=== PATIENT | male | born 1935 | race Caucasian/White ===

== ENCOUNTER → 2016-07-15 | Outpatient (CLI) | payer BC, OTHER ==
[~2016-07-15] MED LIST: ALBU1AER9 INH; ASPCH81X PO; ATEN25TA PO; BENA20TA PO; CARB25TA12 PO; FISHOIL PO; FLUO20CA35 PO; GABA-113 PO; NITR0.4S UT; OMEP40CA PO; OXCA150T3 PO; OXCA300T4 PO; PRIM50TA29 PO; SIMV40TA2 PO; TAMS0.4C59 PO; TEMA15CA4 PO
== END | disposition home or self-care (01) ==
LOC: C.LABMFLN 09:19
PROVIDERS: ATTEND Urology
DX: R33.9 Retention of urine, unspecified (principal); N39.41 Urge incontinence

== ENCOUNTER 2017-04-21 11:53 | Emergency (ER) | payer OTHER ==
[~2017-04-21] VITALS: Ht 175.3 cm; Wt 78.3 kg
[2017-04-21 12:02] VITALS: Ht 175.3 cm; Wt 78.3 kg
[2017-04-21 12:46] LABS: BASO % 0.2 %; BASO ABS # 0.02 K/uL (0-0.2); COMPLETE YES; EOS % 1.5 %; HEMATOCRIT 44.9 % (42-52); IG% 0.2 %; LYMPH % 8.8 %; LYMPH ABS # 0.94 K/uL (1.2-3.4); MEAN CELL VOLUME 95.7 fL (80-100); MEAN CORPUSCULAR HEMOGLOBIN 31.8 pg (25-34); MEAN CORPUSCULAR HGB CONC 33.2 g/dl (32-36); MEAN PLATELET VOLUME 9.4 fL (7.4-10.4); MONO % 4.8 %; NEUT % 84.5 %; PLATELET COUNT 204 K/uL (130-400); RED BLOOD COUNT 4.69 M/uL (4.7-6.1); WHITE BLOOD COUNT 10.66 K/uL (4.8-10.8)
[2017-04-21 13:01] LABS: ALT/SGPT 33 U/L (12-78); AST/SGOT 12 U/L (15-37); BLOOD UREA NITROGEN 8 mg/dl (7-18); BUN/CREATININE RATIO 10.5 (10-20); CARBON DIOXIDE 29 mmol/L (21-32); CHLORIDE 106 mmol/L (98-107); CREATININE 0.76 mg/dl (0.60-1.40); GLUCOSE 91 mg/dl (70-99); POTASSIUM 4.4 mmol/L (3.5-5.1); SODIUM 139 mmol/L (136-145)
[2017-04-21 13:03] LABS: ALKALINE PHOSPHATASE 146 U/L (45-117)
[2017-04-21 13:27] LABS: URINE APPEARANCE CLOUDY (CLEAR); URINE BILIRUBIN NEG (NEG); URINE COLOR DK YELLOW; URINE NITRITE POS (NEG); URINE PH >= 9.0 (4.5-7.5); URINE SPECIFIC GRAVITY 1.014 (1.000-1.030); UROBILINOGEN NEG (NEG); ZZUR CULT IF INDIC CLEAN CATCH YES
[2017-04-21 13:40] LABS: MANUAL MICROSCOPIC REQUIRED? NO; REVIEW REQ? NO; SULFASALICYLIC ACID NEG (NEG)
[2017-04-21] MEDS ORDERED: CARB25TA12 PO (14:00)
[2017-04-21] MEDS ORDERED: CITA20TA9 PO (14:00)
[2017-04-21] MEDS ORDERED: NITR1CAP16 PO (14:00)
[2017-04-21] MEDS ORDERED: PRS5 PO (14:00)
[2017-04-21] MEDS ORDERED: PRIM50TA29 PO (14:00)
[2017-04-21] MEDS ORDERED: PRAM1TAB52 PO (14:00)
[2017-04-21] MEDS ORDERED: SOLI5TAB2 PO (14:00)
[2017-04-21] MEDS ORDERED: NPR375 PO (14:00)
[2017-04-21] MEDS ORDERED: TAMS0.4C38 PO (14:00)
[2017-04-21] MEDS ORDERED: LPT40 PEG (14:00)
[2017-04-21] MEDS ORDERED: MTHH1 PO (14:00)
[2017-04-21] MEDS ORDERED: IMDSR60 PO (14:00)
[2017-04-21] MEDS ORDERED: ATOR-24 PO (14:00)
[2017-04-21] MEDS ORDERED: OXCA150T2 PO (14:00)
[2017-04-21] MEDS ORDERED: METO-551 PO (14:00)
[2017-04-21] MEDS ORDERED: SODIUM CHLORIDE 0.9% 500ML 500 ML IV STA (14:42)
--- NOTE | 2017-04-21 15:16 | DIAGNOSTIC IMAGING REPORT ---
HEAD WITHOUT CONTRAST (CT) CT DOSE: 729.78 mGycm HISTORY: Mental status change dizzy TECHNIQUE: Multiaxial CT images of the head were performed without the use of intravenous contrast. A dose lowering technique was utilized adhering to the principles of ALARA. Comparison: None. Findings: The paranasal sinuses and mastoid air cells are clear. The calvarium and skull base are intact. The ventricles and sulci are within normal limits. There is no mass, hematoma, midline shift, or acute infarct. Impression: No acute intracranial abnormality. The above report was generated using voice recognition software. It may contain grammatical, syntax or spelling errors. Electronically signed by: Farooq Alas M.D. 04/21/2017 3:14 PM Dictated Date/Time: 04/21/2017 3:12 PM
[2017-04-21 15:40] LABS: INR 4.4 (0.9-1.1); PROTHROMBIN TIME (PATIENT) 44.8 SECONDS (9.0-12.0)
[2017-04-21 16:01] VITALS: BP 123/86; PULSE 69; TEMP 36.7; O2SAT 96
--- NOTE | 2017-04-21 17:15 | EMERGENCY ROOM VISIT NOTE ---
History Report prepared by Ata: Adria Marrero Under the Supervision of: Dr. Allen Simons D.O. First contact with patient: 12:00 Chief Complaint: BLEEDING Stated Complaint: RON CATHETER PRIOBLEMS History of Present Illness The patient is a 81 year old male who presents to the Emergency Room with complaints of persistent bleeding from his penis starting last night. The patient has a Ron in place due to chronic incontinence. It was changed by the care home staff, and then he went to [facility]. It was changed at this time, and he was instructed to follow up with urology. He states that he is having pain with urination. The patient additionally notes that he is constipated and he is having pain in his penis. Pt denies headache, change in vision, fevers, chest pain, shortness of breath, nausea, vomiting, diarrhea, and melena. He had recent diagnoses of DVT and PE. His INR was recently 3.5 and he was put on Lovenox. Source of History: patient Onset: last night Position: other (penis) Quality: other (bleeding) Timing: other (persistent) Note: Associated symptoms: Constipation and penis pain. Review of Systems See HPI for pertinent positives & negatives. A total of 10 systems reviewed and were otherwise negative. Past Medical & Surgical Medical Problems: (1) Ron catheter in place (2) Incontinence Social History Marital Status: Housing Status: lives with family Occupation Status: retired Current/Historical Medications Scheduled Atorvastatin (Lipitor), 40 MG PO DAILY Atorvastatin (Atorvastatin Calcium), 40 MG PEG DAILY Carbidopa/Levodopa (Sinemet 25MG/100MG), 1 TAB PO TID Citalopram Hydrobromide (Celexa), 20 MG PO DAILY Finasteride (Finasteride), 5 MG PO DAILY Isosorbide Mononitrate (Isosorbide Mononitrate ER), 60 MG PO DAILY Methenamine Hippurate (Methenamine Hippurate), 1 GM PO BID Metoprolol Tartrate (Lopressor), 50 MG PO BID Naproxen (Naproxen), 375 MG PO BID Nitrofurantoin Monohyd Macro (Macrobid), 100 MG PO BID Oxcarbazepine (Trileptal), 150 MG PO TID Pramipexole Dihydrochloride (Mirapex), 0.25 MG PO DAILY Primidone (Mysoline), 100 MG PO TID Solifenacin Succinate (Vesicare), 5 MG PO DAILY Tamsulosin Hcl (Flomax), 0.4 MG PO DAILY Tamsulosin Hcl (Flomax), 0.4 MG PO DAILY Allergies Coded Allergies: No Known Allergies (Unverified , 04/21/17) Physical Exam Vital Signs Date Time Temp Pulse Resp B/P (MAP) Pulse Ox O2 Delivery O2 Flow Rate FiO2 04/21/17 16:01 36.7 69 18 123/86 96 04/21/17 15:24 69 18 123/86 96 Room Air 04/21/17 12:02 36.7 74 18 176/90 96 Room Air Physical Exam GENERAL: Sitting up in bed, chronically-ill appearing, disheveled, no acute distress, non-toxic. EYE EXAM: normal conjunctiva. PERRL and EOM's intact. OROPHARYNX: no exudate, no erythema, lips, buccal mucosa, and tongue normal and mucous membranes are dry. NECK: supple, no nuchal rigidity, no adenopathy, non-tender LUNGS: Clear to auscultation. Normal chest wall mechanics HEART: no murmurs, S1 normal and S2 normal ABDOMEN: abdomen soft, non-tender, normo-active bowel sounds, no masses, no rebound or guarding. BACK: Back is symmetrical on inspection and there is no deformity, no midline tenderness, no CVA tenderness. : Ron in place with with blood around the urethral meatus. There is blood tinged urine in the bag. SKIN: no rashes and no bruising UPPER EXTREMITIES: upper extremities are grossly normal. LOWER EXTREMITIES: No pitting edema. NEURO EXAM: Normal sensorium, cranial nerves II-XII intact, normal speech, no weakness of arms, no weakness of legs. Drift and finger to nose intact. Sensation intact. At baseline per the family. Medical Decision & Procedures ER Provider Diagnostic Interpretation: Radiology results as stated below per my review and the radiologist's interpretation: HEAD WITHOUT CONTRAST (CT) CT DOSE: 729.78 mGycm HISTORY: Mental status change dizzy TECHNIQUE: Multiaxial CT images of the head were performed without the use of intravenous contrast. A dose lowering technique was utilized adhering to the principles of ALARA. Comparison: None. Findings: The paranasal sinuses and mastoid air cells are clear. The calvarium and skull base are intact. The ventricles and sulci are within normal limits. There is no mass, hematoma, midline shift, or acute infarct. Impression: No acute intracranial abnormality. The above report was generated using voice recognition software. It may contain grammatical, syntax or spelling errors. Electronically signed by: Farooq Alas M.D. 04/21/2017 3:14 PM Dictated Date/Time: 04/21/2017 3:12 PM Laboratory Results 04/21/17 12:20 Red Blood Count 4.69, Mean Corpuscular Volume 95.7, Mean Corpuscular Hemoglobin 31.8, Mean Corpuscular Hemoglobin Concent 33.2, Mean Platelet Volume 9.4, Neutrophils (%) (Auto) 84.5, Lymphocytes (%) (Auto) 8.8, Monocytes (%) (Auto) 4.8, Eosinophils (%) (Auto) 1.5, Basophils (%) (Auto) 0.2, Neutrophils # (Auto) 9.01, Lymphocytes # (Auto) 0.94, Monocytes # (Auto) 0.51, Eosinophils # (Auto) 0.16, Basophils # (Auto) 0.02 04/21/17 12:20 Test 04/21/17 12:20 04/21/17 13:10 White Blood Count 10.66 K/uL (4.8-10.8) Red Blood Count 4.69 M/uL (4.7-6.1) Hemoglobin 14.9 g/dL (14.0-18.0) Hematocrit 44.9 % (42-52) Mean Corpuscular Volume 95.7 fL (80-100) Mean Corpuscular Hemoglobin 31.8 pg (25-34) Mean Corpuscular Hemoglobin Concent 33.2 g/dl (32-36) Platelet Count 204 K/uL (130-400) Mean Platelet Volume 9.4 fL (7.4-10.4) Neutrophils (%) (Auto) 84.5 % Lymphocytes (%) (Auto) 8.8 % Monocytes (%) (Auto) 4.8 % Eosinophils (%) (Auto) 1.5 % Basophils (%) (Auto) 0.2 % Neutrophils # (Auto) 9.01 K/uL (1.4-6.5) Lymphocytes # (Auto) 0.94 K/uL (1.2-3.4) Monocytes # (Auto) 0.51 K/uL (0.11-0.59) Eosinophils # (Auto) 0.16 K/uL (0-0.5) Basophils # (Auto) 0.02 K/uL (0-0.2) RDW Standard Deviation 46.0 fL (36.4-46.3) RDW Coefficient of Variation 13.3 % (11.5-14.5) Immature Granulocyte % (Auto) 0.2 % Immature Granulocyte # (Auto) 0.02 K/uL (0.00-0.02) Prothrombin Time 44.8 SECONDS (9.0-12.0) Prothromb Time International Ratio 4.4 (0.9-1.1) Anion Gap 4.0 mmol/L (3-11) Est Creatinine Clear Calc Drug Dose 77.6 ml/min Estimated GFR () 99.9 Estimated GFR (Non- 86.2 BUN/Creatinine Ratio 10.5 (10-20) Calcium Level 9.0 mg/dl (8.5-10.1) Total Bilirubin 0.4 mg/dl (0.2-1) Direct Bilirubin < 0.1 mg/dl (0-0.2) Aspartate Amino Transf (AST/SGOT) 12 U/L (15-37) Alanine Aminotransferase (ALT/SGPT) 33 U/L (12-78) Alkaline Phosphatase 146 U/L (45-117) Total Protein 7.0 gm/dl (6.4-8.2) Albumin 3.3 gm/dl (3.4-5.0) Lipase 75 U/L (73-393) Urine Color DK YELLOW Urine Appearance CLOUDY (CLEAR) Urine pH >= 9.0 (4.5-7.5) Urine Specific [place] 1.014 (1.000-1.030) Urine Protein NEG (NEG) Urine Glucose (UA) NEG (NEG) Urine Ketones NEG (NEG) Urine Occult Blood 3+ (NEG) Urine Nitrite POS (NEG) Urine Bilirubin NEG (NEG) Urine Urobilinogen NEG (NEG) Urine Leukocyte Esterase SMALL (NEG) Urine WBC (Auto) 10-30 /hpf (0-5) Urine RBC (Auto) >30 /hpf (0-4) Urine Hyaline Casts (Auto) 1-5 /lpf (0-5) Urine Epithelial Cells (Auto) 10-20 /lpf (0-5) Urine Bacteria (Auto) NEG (NEG) Laboratory results per my review. Medications Administered Medications (Trade) Dose Ordered Sig/Rachelle Route Start Time Stop Time Status Last Admin Dose Admin Sodium Chloride 500 ml @ 999 mls/hr Q31M STAT IV 04/21/17 14:42 04/21/17 15:12 DC 04/21/17 15:24 999 MLS/HR ED Course ED COURSE: Vital signs were reviewed and showed situational hypertension The patients medical record was reviewed The above diagnostic studies were performed and reviewed. ED treatments and interventions as stated above. 1200: The patient was evaluated in room A4. A complete history and physical examination was performed. Urine culture review showed susceptible to cephalosporins. 1434: I reevaluated the patient, and his family was at his bedside. They state that the patient has been complaining that he has been dizzy. He agrees and notes that it is only present with position change. 1442: Sodium Chloride 500 ml @ 999 mls/hr IV 1514: I reassessed the patient, and he just returned from CT scan. 1544: I discussed the patient's case with Lita MARTINEZ - Urology, and she will follow up with the patient. 1547: Upon reevaluation, the patient is doing well.I discussed my findings with the patient and his family, and they understand and agree with the treatment plan. Based on the patients age, coexisting illnesses, exam and lab findings the decision to treat as an outpatient was made. The patient remained stable while under my care. The patient appeared well at the time of discharge. Medical Decision Differential diagnoses includes but is not limited to gastritis, peptic ulcer disease, GERD, gallbladder disease, pancreatitis, small bowel obstruction, acute coronary syndrome, pericarditis, ischemic bowel, irritable bowel disease, irritable bowel syndrome, appendicitis, diverticulitis, malignancy, hernia, urinary tract infection, torsion, perforation, trauma, infectious. Patient is an 81-year-old male with a chronic indwelling Ron for urinary incontinence a follows with urology. He presents the ER today for blood around the Ron catheter and in the Ron catheter/urine. He was seen yesterday at [facility]. Catheters changed twice in the past 24 hours. Recently started on Coumadin and Lovenox as he was diagnosed with blood clots. Bleeding has been present intermittently for the past week 4 hours. He also complained of mild dizziness which is only present with positional changes. He is completely neurologically intact. CT head was performed with a recent start of anticoagulation. This was negative. CBC all BMP, LFTs, bilirubin and lipase was normal. INR was elevated at 4.4. UA has nitrates, esterase, white cells and epithelial cells. He was previously/recently started on Macrobid. Discussed with urology. Will continue Macrobid. Instructed him to not take any more Lovenox. We will hold Coumadin tonight. They will discuss with the physician monitoring the Coumadin tomorrow. They will follow-up with urology within the next 24-48 hours. Discussed with Pt concerning signs and symptoms to watch out for. Pt was instructed to follow up with their PCP and discussed with the patient their option to return to the ED at anytime for persistent or worsening symptoms. The appropriate anticipatory guidance and out-patient management, including indications for return to the emergency department, were explained at length to the patient and understood. Medication Reconcilliation Current Medication List: was personally reviewed by me Blood Pressure Screening Patient's blood pressure: Elevated blood pressure Blood pressure disposition: Elevated BP felt to be situational Consults Time Called: 1542 Consulting Physician: Lita MARTINEZ - Urology Returned Call: 1545 I discussed the patient's case with Lita MARTINEZ - Urology, and she will follow up with the patient. Impression Primary Impression: Complication of Ron catheter Additional Impressions: Hematuria Elevated INR UTI (urinary tract infection) Scribe Attestation The scribe's documentation has been prepared under my direction and personally reviewed by me in its entirety. I confirm that the note above accurately reflects all work, treatment, procedures, and medical decision making performed by me. Departure Information Dispostion Home / Self-Care Referrals No Doctor, Assigned (PCP) Forms HOME CARE DOCUMENTATION FORM, IMPORTANT VISIT INFORMATION Patient Instructions Catheter Indwelling Urinary Dc, ED UTI Cystitis Male, Hematuria Urologic Causes Ch, [facility] Additional Instructions Please follow up with your primary care doctor with in the next 24 hours. Any worsening of your symptoms, please return to the ED immediately. This includes any fevers greater than 100.4, worsening pain, chest pain, shortness breath, persistent nausea, vomiting, unable to eat or drink, large amount of blood in your urine, bleeding around Ron, or any other concerning signs or symptoms from your standpoint. Your INR/Coumadin level was elevated at 4. Do not take Lovenox or Coumadin tonight. Please restart her Coumadin tomorrow and contact the staff that is managing your Coumadin level. Please follow up with urology within 24-48 hours. Please continue your antibiotics Problem Qualifiers Primary Impression: Complication of Ron catheter Encounter type: initial encounter Qualified Codes: T83.9XXA - Unspecified complication of genitourinary prosthetic device, implant and graft, initial encounter Additional Impressions: Hematuria Hematuria type: unspecified type Qualified Codes: R31.9 - Hematuria, unspecified UTI (urinary tract infection) Urinary tract infection type: catheter-associated UTI Indwelling urinary catheter type: indwelling urethral catheter Encounter type: sequela Qualified Codes: T83.511S - Infection and inflammatory reaction due to indwelling urethral catheter, sequela; N39.0 - Urinary tract infection, site not specified
== END 2017-04-21 16:03 | disposition home or self-care (01) ==
LOC: EDBD 11:53 → C.EDA 11:55
DX: T85.838A Hemorrhage due to other internal prosthetic devices, implants and grafts, initial encounter (principal); X58.XXXA Exposure to other specified factors, initial encounter; Z79.899 Other long term (current) drug therapy